=== PATIENT | male | born 1985 | race Caucasian/White ===

== ENCOUNTER 2017-04-22 07:18 | Outpatient (CLI) | payer OTHER ==
--- NOTE | 2017-04-22 08:12 | ULT ---
RIGHT UPPER QUADRANT ULTRASOUND: History: 32-year-old male with history of right upper quadrant pain. FINDINGS: Multiple mobile gallstones are noted within the gallbladder without overt gallbladder wall thickening or pericholecystic fluid. Common bile duct is 0.4 cm. Minimal hepatomegaly with some increased echog enicity suggesting some fatty change. Visualized pancreas and right kidney are unremarkable. IMPRESSION: Multiple cholelithiasis. Minimal liver enlargement with some fatty change. No ductal dilatation. POS: [facility]
== END 2017-04-22 07:19 | disposition home or self-care (01) ==
LOC: ULT 07:18
PROVIDERS: ATTEND Internal Medicine Gastroenterology
DX: K21.9 Gastro-esophageal reflux disease without esophagitis (principal); F41.9 Anxiety disorder, unspecified; K80.20 Calculus of gallbladder without cholecystitis without obstruction
CPT/HCPCS: 76705

== ENCOUNTER 2017-05-08 09:35 | Day surgery (SDC) | payer OTHER ==
[2017-05-07 12:04] VITALS: BMI 31.4
[2017-05-08 10:24] LABS: #Basophils 0.1 thou/uL (0.0-0.2); #Eosinphils 0.1 thou/uL (0.0-0.7); #Lymphocytes 1.8 thou/uL (1.20-3.40); #Monocytes 0.4 thou/uL (0.11-0.59); #Neutrophils 2.6 thou/uL (1.40-6.50); %Eosinophils 2.3 % (0.0-10.0); %Lymphocytes 36.2 % (21.0-51.0); %Monocytes 8.4 % (0.0-10.0); %Neutrophils 52.1 % (42.0-75.0); Hemoglobin 15.5 g/dL (14.0-18.0); Mean Corpuscular Volume 91.4 fl (80.0-94.0); Mean Platelet Volume 7.2 fL (7.4-10.4); Platelet Count 219 thou/uL (130-400); RBC Distribution Width 11.4 % (11.5-14.5); Red Blood Cell (RBC) Count 4.83 mill/uL (4.70-6.10)
[2017-05-08 10:43] LABS: ALT (SGPT) 48 U/L (8-55); AST (SGOT) 28 U/L (5-34); Albumin 4.6 g/dL (3.5-5.0); Alkaline Phosphatase 61 U/L (40-150); Anion Gap 13 mmol/L (10-20); BUN (Urea Nitrogen) 13 mg/dL (8.9-20.6); Bilirubin, Total 1.1 mg/dL (0.2-1.2); Calc. Creatinine Clearance 129 mL/min (70-130); Calcium 9.4 mg/dL (7.8-10.44); Carbon Dioxide 25 mmol/L (22-29); Chloride 107 mmol/L (98-107); Estimated GFR-MDRD 71; Globulin 2.5 g/dL (2.4-3.5); Glucose 102 mg/dL (70-105); Potassium 3.6 mmol/L (3.5-5.1); Protein, Total 7.1 g/dL (6.0-8.3); Sodium 141 mmol/L (136-145)
[2017-05-08] MEDS ORDERED: Midazolam HCl 2 mg/2 ml Vial ONE ×2 (11:42→12:52)
[2017-05-08] MEDS ORDERED: CEFAZOLIN/Water 2 GM/20 ML SYRINGE ONE (11:50)
[2017-05-08] MEDS ORDERED: Famotidine/PF 20 mg/2ml Vial ONE (12:53)
[2017-05-08] MEDS ORDERED: Ondansetron HCl/PF 4 MG/2 ML Vial ONE ×3 (12:53→14:52)
[2017-05-08] MEDS ORDERED: Bupivacaine/Epinephrine 0.25% 30 ML VIAL ONE (12:54)
[2017-05-08] MEDS ORDERED: Fentanyl 250 MCG/5 ML VIAL ONE (13:02)
[2017-05-08] MEDS ORDERED: Glycopyrrolate 0.2 MG/ML 5 ML SYRINGE ONE (14:52)
[2017-05-08] MEDS ORDERED: Ketorolac Tromethamine 30 MG/ML VIAL ONE (14:52)
[2017-05-08] MEDS ORDERED: Dexamethasone 20 MG/5 ML VIAL ONE (14:52)
[2017-05-08] MEDS ORDERED: PROPOFOL 200 MG/20 ML VIAL ONE (14:52)
[2017-05-08] MEDS ORDERED: diphenhydrAMINE 50 MG/ML VIAL ONE (14:52)
[2017-05-08] MEDS ORDERED: Lidocaine 1% PF 5 ML VIAL ONE (14:52)
[2017-05-08] MEDS ORDERED: HYDROcodone/Acetaminophen 5/325 mg Tablet ONE ×2 (15:24→16:08)
--- NOTE | 2017-05-11 10:28 | OP ---
DATE OF PROCEDURE: 05/08/2017 PROCEDURE: Laparoscopic cholecystectomy. PREOPERATIVE DIAGNOSES: Cholelithiasis and cholecystitis. POSTOPERATIVE DIAGNOSES: Cholelithiasis and cholecystitis. HISTORY: Mr. Encarnacion is a 32-year-old man with abdominal pain and nausea and some of his symptoms are typical for biliary colic and he does have gallstones on ultrasound as well as some right upper quadrant tenderness; however, some of his symptoms are more consistent with reflux. Recommendation was made to proceed with laparoscopic cholecystectomy for symptomatic relief with counseling of the patient preoperatively that some of his reflux symptoms are likely to persist and that he will require ongoing treatment for this. PROCEDURE IN DETAIL: After informed consent was obtained and appropriate preoperative antibiotics administered, the patient was taken to the operating room. He was placed in supine position and general endotracheal anesthesia was administered. He was prepped and draped in a standard sterile fashion. Local anesthesia was infused into the skin and subcutaneous tissues at the level of the umbilicus. A transverse skin incision was made, the fascia was elevated, and a Veress needle placed into the abdominal cavity without difficulty. Opening pressure was less than 5 and carbon dioxide gas easily insufflated to an intra-abdominal pressure of 15, which the patient tolerated well. The Veress needle was withdrawn, and a ClearView port advanced under direct vision into the abdominal cavity, which was carefully examined. There was no evidence of Veress needle or of trocar injury. Local anesthesia was infused to the skin and subcutaneous tissues at the epigastric, right upper quadrant, and right lateral sites. Skin incisions were made, and trocars were placed under direct vision. The gallbladder was noted to be white walled consistent with chronic cholecystitis and he was noted to have omental adhesions also consistent with chronic inflammation. The fundus of the gallbladder was grasped and retracted superiorly. The omental adhesions were taken down through the avascular plane using careful electrocautery as needed. The infundibulum was identified, grasped, and retracted laterally. The serosa was stripped inferiorly at the level of the neck of the gallbladder and the cystic duct and artery dissected free circumferentially and traced to their insertion in the gallbladder. Critical view of safety was obtained and the cystic duct and artery were clipped and divided between clips. The gallbladder was then dissected free of the gallbladder bed using hook electrocautery. Before complete removal of the gallbladder from the gallbladder bed, the area of the cystic duct and artery stumps was examined and the clips were in good position across these structures and there was no bleeding and no leakage of bile. The gallbladder was then completely removed from the gallbladder bed, placed into an EndoCatch bag and drawn out through the epigastric incision. The epigastric trocar was replaced and the operative site examined. Hemostasis was verified and the operative site was easily irrigated to clear. The epigastric trocar was withdrawn, and the fascia closed under direct laparoscopic vision using the GraNee needle with excellent technical result. The right upper quadrant and right lateral trocars were then removed and hemostasis was verified. Carbon dioxide gas was allowed to desufflate through the umbilical trocar, which was then removed. The skin incisions were closed using 4-0 subcuticular Monocryl sutures, and Dermabond dressings were placed. The patient was extubated and taken to the recovery room in good condition. Estimated blood loss was minimal. There were no complications. SPECIMEN: Gallbladder and contents. JESSICA
== END 2017-05-08 16:54 | disposition home or self-care (01) ==
LOC: SDC 09:35
PROVIDERS: ATTEND Surgery
PROC: 0FT44ZZ Resection of Gallbladder, Percutaneous Endoscopic Approach (ICD-10-PCS; principal; 2017-05-08)
DX: K81.1 Chronic cholecystitis (principal); F43.10 Post-traumatic stress disorder, unspecified; Z79.899 Other long term (current) drug therapy
CPT/HCPCS: 36415; 80053; 85025; 88304; J0131; J1100; J1200; J1885; J2001; J2250; J2405; J2704; J3010; S0028

== ENCOUNTER 2017-05-10 17:38 | Emergency (ER) | payer OTHER ==
[2017-05-10] MEDS ORDERED: Pantoprazole 40 MG VIAL ONE (18:20)
[2017-05-10] MEDS ORDERED: Ondansetron HCl/PF 4 MG/2 ML Vial ONE (18:20)
[2017-05-10 19:55] LABS: #Basophils 0.1 thou/uL (0.0-0.2); #Eosinphils 0.1 thou/uL (0.0-0.7); #Lymphocytes 1.8 thou/uL (1.20-3.40); #Monocytes 0.7 thou/uL (0.11-0.59); #Neutrophils 5.9 thou/uL (1.40-6.50); %Basophils 0.6 % (0.0-1.0); %Eosinophils 1.1 % (0.0-10.0); %Lymphocytes 21.3 % (21.0-51.0); %Monocytes 7.9 % (0.0-10.0); %Neutrophils 69.1 % (42.0-75.0); Hemoglobin 15.2 g/dL (14.0-18.0); Mean Corpuscular HGB CONC 34.7 g/dL (32.0-36.0); Mean Corpuscular Hemoglobin 32.1 pg (27.0-31.0); Mean Corpuscular Volume 92.6 fl (80.0-94.0); Mean Platelet Volume 7.9 fL (7.4-10.4); Platelet Count 188 thou/uL (130-400); RBC Distribution Width 11.5 % (11.5-14.5); Red Blood Cell (RBC) Count 4.75 mill/uL (4.70-6.10); White Blood Cell (WBC) Count 8.6 thou/uL (4.8-10.8)
[2017-05-10 20:05] LABS: ALT (SGPT) 117 U/L (8-55); AST (SGOT) 79 U/L (5-34); Albumin 4.5 g/dL (3.5-5.0); Alkaline Phosphatase 63 U/L (40-150); Anion Gap 16 mmol/L (10-20); BUN (Urea Nitrogen) 12 mg/dL (8.9-20.6); Bilirubin, Total 0.7 mg/dL (0.2-1.2); Calc. Creatinine Clearance 0 mL/min (70-130); Calcium 9.1 mg/dL (7.8-10.44); Carbon Dioxide 24 mmol/L (22-29); Chloride 107 mmol/L (98-107); Estimated GFR-MDRD 76; Globulin 2.6 g/dL (2.4-3.5); Glucose 91 mg/dL (70-105); Lipase 37 U/L (8-78); Potassium 4.1 mmol/L (3.5-5.1); Protein, Total 7.1 g/dL (6.0-8.3); Sodium 143 mmol/L (136-145)
[2017-05-10 20:22] LABS: Bilirubin Negative (Negative); Blood, Urine Negative (Negative); Clarity CLEAR (Clear); Glucose, Urine (Dipstick) Negative (Negative); Leukocyte Negative (Negative); Nitrite Negative (Negative); Protein, Urine (Dipstick) Negative (Neg-Trace); Urobilinogen 0.2 mg/dL (0.2-1.0)
[2017-05-10] MEDS ORDERED: Diphenoxylate HCl/Atropine Tablet ONE (21:31)
[2017-05-10] MEDS ORDERED: Metoclopramide HCl 10 MG/2 ML VIAL ONE (21:56)
== END 2017-05-10 23:57 | disposition home or self-care (01) ==
LOC: ERS 17:38
DX: R11.2 Nausea with vomiting, unspecified (principal); R19.7 Diarrhea, unspecified; Z79.899 Other long term (current) drug therapy
CPT/HCPCS: 80053; 81003; 83690; 85025; 96361; 96365; 96366; 96372; 96375; C9113; J2405; J2765